=== PATIENT | female | born 1945 | race Hispanic/Latino ===

== ENCOUNTER 2016-10-05 14:04 | Outpatient (CLI) | payer MEDICARE ==
--- NOTE | 2016-10-06 08:32 | Magnetic Resonance Report ---
MR THORACIC SPINE WITHOUT CONTRAST HISTORY: Back pain, costal margin pain. TECHNIQUE: Axial T2. Sagittal T1, T2 and STIR. COMPARISON: None. FINDINGS: The thoracic spinal cord is normal size and signal intensity throughout. No abnormal cord signal. No central canal stenosis. Normal height and alignment of the thoracic vertebral bodies. No evidence for compression deformity. There are multilevel Schmorl's nodes within the mid to lower thoracic spine. There is an 8mm focus suspicious bone marrow signal in the left transverse process of T10. This is best demonstrated on axial T2 image 13, sagittal T1 image 3, and sagittal STIR image 3. This lesion is increased signal on T2 and decreased signal on T1. No other areas of abnormal bone marrow signal are appreciated. Mild to moderate disc desiccation and narrowing is identified at all levels. There is no evidence for significant bulging disc, herniation or epidural process. A 5 mm nerve root cyst is identified in the left T3-4 neural foramen. This may be an incidental finding although it does mildly displace the left T3 nerve root. The remaining neural foramen are widely patent and unremarkable. The paraspinal soft tissues are within normal limits. The posterior ribs are intact. IMPRESSION: Mild to moderate multilevel thoracic spondylosis. No evidence for compression deformity, bulging disc or central canal stenosis. Solitary, small focus of abnormal bone marrow signal in the left transverse process of T10. Although this could represent an atypical bone hemangioma. A solitary metastatic lesion or focal area of trauma should be considered. This abnormality is directly beneath a marker that was placed by the market development specialist at the site of pain. Recommend further evaluation with MRI thoracic spine with contrast. Does this patient have a history of cancer?
--- NOTE | 2016-10-06 08:54 | Magnetic Resonance Report ---
MR LUMBAR SPINE WITHOUT CONTRAST HISTORY: Back pain, costal margin pain, history of right breast cancer. TECHNIQUE: Axial T1 and T2. Sagittal T1, T2 and STIR. COMPARISON: No previous exams of the lumbar spine at this facility. Correlation is made with MR thoracic spine without contrast performed the same day. FINDINGS: The conus terminates at L1 level. No abnormality. The cauda equina is unremarkable. There is mild levoscoliosis of lumbar spine estimated at 5 degrees with apex near L2-3. Multilevel Schmorl's nodes are identified which are most pronounced within L2. 2 cm vertebral body hemangioma is noted in the anterior, superior L3 vertebral body. There is a solitary 9 mm focus of abnormal bone marrow signal in the posterior, inferior L3 vertebral body. This lesion is decreased T1 signal, increased T2 signal and increased STIR signal which is similar to the lesion seen in the T10 transverse process. No additional suspicious bony lesions. There is mild to moderate diffuse disc desiccation and narrowing. Moderate diffuse facet arthropathy with hypertrophic changes. L1-2: No significant abnormality. L2-3: A mild posterior bulging disc and mild facet arthropathy are noted. L3-4: A mild diffuse posterior bulging disc and moderate facet arthropathy are identified. Mild hypertrophy of ligamentum flavum. There is mild central canal narrowing measuring 8 mm in AP dimension. 25% bilateral neural foraminal narrowing. L4-5: Mild diffuse posterior bulging disc. Moderate facet arthropathy and hypertrophy ligamentum flavum. There is mild central canal narrowing measuring 8 mm in AP dimension. Bilateral neural foraminal narrowing is estimated at 50%. L5-S1: Moderate left lateral spurring is identified. Moderate facet arthropathy and hypertrophy ligamentum flavum. No central canal stenosis. Left neural foraminal narrowing is estimated at 25%. IMPRESSION: Mild levoscoliosis with mild to moderate degenerative changes. No acute injury is appreciated. Mild central canal narrowing at L3-4 and L4-5. There is one suspicious bony lesion in the posterior, inferior L3 vertebral body. I cannot entirely exclude a metastatic lesion. This could also be related to Modic degenerative endplate changes. Given the suspicious findings in the thoracic spine, further evaluation with MRI lumbar spine with contrast is recommended.
== END 2016-10-05 14:05 | disposition home or self-care (01) ==
LOC: SPVIMAG 14:04
PROVIDERS: ATTEND Internal Medicine
DX: M47.896 Other spondylosis, lumbar region (principal); M47.894 Other spondylosis, thoracic region; M41.86 Other forms of scoliosis, lumbar region; M12.88 Other specific arthropathies, not elsewhere classified, other specified site; M51.46 Schmorl's nodes, lumbar region; M24.28 Disorder of ligament, vertebrae; M48.8X6 Other specified spondylopathies, lumbar region; M51.44 Schmorl's nodes, thoracic region; M53.84 Other specified dorsopathies, thoracic region; Z85.3 Personal history of malignant neoplasm of breast
CPT/HCPCS: 72146; 72148

== ENCOUNTER 2017-01-17 08:12 | Outpatient (CLI) | payer MEDICARE ==
[2017-01-17] MEDS ORDERED: XYLOCAINE TOPICAL 4% TP ONE ×2 (09:00→10:31)
== END 2017-01-17 08:13 | disposition home or self-care (01) ==
LOC: WOUND 08:12
PROVIDERS: ATTEND Internal Medicine
DX: L02.31 Cutaneous abscess of buttock (principal); K21.0 Gastro-esophageal reflux disease with esophagitis; I10 Essential (primary) hypertension; E03.8 Other specified hypothyroidism; E78.00 Pure hypercholesterolemia, unspecified; Z85.830 Personal history of malignant neoplasm of bone
CPT/HCPCS: 87116; 97597; G0463; 87075; 99213

== ENCOUNTER 2020-10-23 11:40 | Outpatient (CLI) | payer MEDICARE ==
--- NOTE | 2020-10-23 12:31 | XRay Report ---
CHEST 2 VIEWS INDICATION: COUGH/SOB/CHEST PAIN. COMPARISON: None FINDINGS: Support devices: Right Gkeuht-g-Vayt is in good position Heart: Borderline to mild cardiomegaly. Lungs/pleura: No acute air space or interstitial disease. No pleural effusion or pneumothorax. Additional findings: None. IMPRESSION: Borderline to mild cardiomegaly. Lungs clear. Signer Name: Bonifacio Cross Jr, MD Signed: 10/23/2020 12:26 PM Workstation Name: [id number]
== END 2020-10-23 11:41 | disposition home or self-care (01) ==
LOC: SPVIMAG 11:40
PROVIDERS: ATTEND Internal Medicine Hematology & Oncology
DX: C50.211 Malignant neoplasm of upper-inner quadrant of right female breast (principal); B36.9 Superficial mycosis, unspecified; D64.9 Anemia, unspecified; I51.7 Cardiomegaly
CPT/HCPCS: 71046

== ENCOUNTER 2020-11-05 09:27 | Outpatient (CLI) | payer MEDICARE ==
--- NOTE | 2020-11-05 12:29 | Ultrasound Report ---
ULTRASOUND ABDOMEN, LIMITED INDICATION / CLINICAL INFORMATION: RUQ ABDOMINAL PAIN. COMPARISON: None available. FINDINGS: Technically limited exam. PANCREAS: Visualized portion shows no significant abnormality. AORTA: Not well visualized. No significant abnormality identified. IVC: No significant abnormality. LIVER: The liver is not well visualized. No significant abnormality identified. GALLBLADDER: Surgically absent. BILE DUCTS: Not visualized. RIGHT KIDNEY: The right kidney measures 9.3 cm. No significant abnormality. FREE FLUID: None. ADDITIONAL FINDINGS: None. IMPRESSION: 1. Technically limited exam. No significant abnormality of the right upper quadrant. Scribed by: Hailey Peralta RDMS, RVT Scribed: 11/05/2020 11:06 AM I have reviewed the images, agree with this report, and edited this report as needed. Signer Name: Malik Veloz MD Signed: 11/05/2020 12:24 PM Workstation Name: [id number]
== END 2020-11-05 09:28 | disposition home or self-care (01) ==
LOC: SPVIMAG 09:27
PROVIDERS: ATTEND Student in an Organized Health Care Education/Training Program
DX: R10.11 Right upper quadrant pain (principal)
CPT/HCPCS: 76705